=== PATIENT | female | born 1970 | race Caucasian/White ===

== ENCOUNTER 2018-03-11 00:04 | Emergency (ER) | payer SELFPAY ==
--- NOTE | 2018-03-11 00:23 | EDM.PDOC ---
ED HPI GENERAL MEDICAL PROBLEM - General Chief Complaint: Laceration Stated Complaint: CUT ON LEFT ARM Time Seen by Provider: 03/11/18 00:22 Source of Information: Reports: Patient - History of Present Illness INITIAL COMMENTS - FREE TEXT/NARRATIVE: HISTORY AND PHYSICAL: History of present illness: [Patient cut her posterior forearm full-thickness skin 2 inch linear incision while washing dishes tonight No fever nausea vomiting chills sweats] Review of systems: As per history of present illness and below otherwise all systems reviewed and negative. Past medical history: As per history of present illness and as reviewed below otherwise noncontributory. Surgical history: As per history of present illness and as reviewed below otherwise noncontributory. Social history: No reported history of drug or alcohol abuse. Family history: As per history of present illness and as reviewed below otherwise noncontributory. Physical exam: HEENT: Atraumatic, normocephalic, pupils reactive, negative for conjunctival pallor or scleral icterus, mucous membranes moist, throat clear, neck supple, nontender, trachea midline. Lungs: Clear to auscultation, breath sounds equal bilaterally, chest nontender. Heart: S1S2, regular, negative for clicks, rubs, or JVD. Abdomen: Soft, nondistended, nontender. Negative for masses or hepatosplenomegaly. Negative for costovertebral tenderness. Pelvis: Stable nontender. Genitourinary: Deferred. Rectal: Deferred. Extremities: Atraumatic, negative for cords or calf pain. Neurovascular unremarkable. Neuro: Awake, alert, oriented. Cranial nerves II through XII unremarkable. Cerebellum unremarkable. Motor and sensory unremarkable throughout. Exam nonfocal. Skin as per history of present illness otherwise unremarkable Diagnostics: []Clinical Therapeutics: []Tetanus status is up-to-date per patient lens and explored Lidocaine 2 mL for anesthesia #3 4-0 interru sutures Impression 2 inch linear laceration, simple: [] Definitive disposition and diagnosis as appropriate pending reevaluation and review of above. left arm Pain Score (Numeric/FACES): 8 - Related Data Allergies Allergy/AdvReac Type Severity Reaction Status Date / Time bee venom protein (honey bee) Allergy Anaphylactic Verified 03/11/18 00:18 Shock insect venom Allergy Anaphylactic Verified 03/11/18 00:18 Shock suture Allergy Hives Verified 03/11/18 00:18 Home Meds: Home Meds . 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: Reports: Musculoskeletal History: Reports: Other (See Below) Other Musculoskeletal History: rib fx Neurological History: Reports: Brain Injury, Head Trauma Hematologic History: Reports: Other (See Below) Other Hematologic History: thalasemia - Past Surgical History HEENT Surgical History: Reports: Tonsillectomy Cardiovascular Surgical History: Reports: None GI Surgical History: Reports: Appendectomy Female Surgical History: Reports: Hysterectomy, Other (See Below) Other Female Surgeries/Procedures: bladder sling Musculoskeletal Surgical History: Reports: None Social & Family History - Family History Family Medical History: Noncontributory - Tobacco Use Smoking Status *Q: Current Every Day Smoker Years of Tobacco use: 25 Packs/Tins Daily: 0.1 - Caffeine Use Caffeine Use: Reports: Coffee - Recreational Drug Use Recreational Drug Use: No ED ROS GENERAL - Review of Systems Review Of Systems: See Below ED EXAM, SKIN/RASH Exam: See Below Course - Vital Signs Last Recorded V/S: Last Vital Signs Temp 97.1 F 03/11/18 00:09 Pulse 97 03/11/18 00:09 Resp 18 03/11/18 00:09 BP 133/109 H 03/11/18 00:09 Pulse Ox 97 03/11/18 00:09 - Orders/Labs/Meds Meds: Medications Discontinued Medications Generic Name Dose Route Start Last Admin Trade Name Kendy PRN Reason Stop Dose Admin Bacitracin 1 dose 03/11/18 00:30 03/11/18 00:41 Bacitracin Oint 1 Gm TOP 03/11/18 00:31 1 dose ONETIME ONE Administration Lidocaine HCl Confirm 03/11/18 00:33 03/11/18 00:41 Xylocaine-Mpf 1% Administered 03/11/18 00:34 Not Given Dose 5 mls @ as directed .ROUTE .STK-MED ONE Lidocaine HCl 10 ml 03/11/18 00:25 03/11/18 00:42 Xylocaine 1% INJECT 03/11/18 00:26 Not Given ONETIME ONE Lidocaine HCl 10 ml 03/11/18 00:40 Xylocaine-Mpf 1% INJECT 03/11/18 00:41 ONETIME ONE Departure - Departure Time of Disposition: 00:43 Disposition: Home, Self-Care 01 Condition: Good Clinical Impression: Laceration - Discharge Information Referrals: PCP,None [Primary Care Provider] - Forms: ED Department Discharge Additional Instructions: Standard wound care instructions Keep wound clean and dry for 48 hours Return if redness warmth or pus drainage should this develop Follow-up for suture removal in 10 days The following information is given to patients seen in the emergency department who are being discharged to home. This information is to outline your options for follow-up care. We provide all patients seen in our emergency department with a follow-up referral. The need for follow-up, as well as the timing and circumstances, are variable depending upon the specifics of your emergency department visit. If you don't have a primary care physician on staff, we will provide you with a referral. We always advise you to contact your personal physician following an emergency department visit to inform them of the circumstance of the visit and for follow-up with them and/or the need for any referrals to a consulting specialist. The emergency department will also refer you to a specialist when appropriate. This referral assures that you have the opportunity for follow-up care with a specialist. All of these measure are taken in an effort to provide you with optimal care, which includes your follow-up. Under all circumstances we always encourage you to contact your private physician who remains a resource for coordinating your care. When calling for follow-up care, please make the office aware that this follow-up is from your recent emergency room visit. If for any reason you are refused follow-up, please contact the [facility] emergency department at and asked to speak to the emergency department charge nurse.
[2018-03-11] MEDS ORDERED: Lidocaine 1% 10 ML MDV INJECT ONE (00:25)
[2018-03-11] MEDS ORDERED: Bacitracin Oint 1 GM U/D Packet TOP ONE (00:30)
[2018-03-11] MEDS ORDERED: Lidocaine 1% 0 ML ONE (00:33)
== END 2018-03-11 00:50 | disposition home or self-care (01) ==
LOC: MW.ED 00:04
DX: S51.812A Laceration without foreign body of left forearm, initial encounter (principal); W26.9XXA Contact with unspecified sharp object(s), initial encounter; Y93.G1 Activity, food preparation and clean up
CPT/HCPCS: 99282